=== PATIENT | female | born 1965 | race Caucasian/White ===

== ENCOUNTER 2017-08-05 21:00 | Emergency (ER) | payer OTHER ==
[2017-08-05 21:18] LABS: ADD MAN DIFF? NO
[2017-08-05 21:21] LABS: WHITE BLOOD COUNT 9.5 10^3/ul (4.8-10.8)
[2017-08-05 21:21] LABS: BASOPHILS % 0.3 % (0.0-2.0); EOSINOPHILS # 0.1 10^3/ul (0.0-0.5); EOSINOPHILS % 1.5 % (0.0-7.0); HEMATOCRIT 44.8 % (37.0-47.0); HEMOGLOBIN 13.5 g/dl (12.0-16.0); LYMPHOCYTES # 1.7 10^3/ul (0.8-2.9); LYMPHOCYTES % 17.9 % (15.0-51.0); MEAN CORPUSCULAR HEMOGLOBIN 27.3 pg (29.0-33.0); MEAN CORPUSCULAR HGB CONC 30.1 g/dl (32.0-37.0); MEAN CORPUSCULAR VOLUME 90.5 fl (82.0-101.0); MEAN PLATELET VOLUME 9.5 fl (7.4-10.4); MONOCYTE # 0.9 10^3/ul (0.3-0.9); MONOCYTES % 9.1 % (0.0-11.0); NEUTROPHIL # 6.8 10^3/ul (1.6-7.5); PLATELET COUNT 320 10^3/UL (140-415); RED BLOOD COUNT 4.95 10^6/ul (4.20-5.40); RED CELL DISTRIBUTION WIDTH 15.2 % (11.5-14.5)
[2017-08-05] MEDS: ONDANSETRON 4 MG INJ IV (21:31)
[2017-08-05] MEDS: DILTIAZEM 25 MG INJ IV (21:31)
[2017-08-05] MEDS: ASPIRIN 325 MG TAB PO (21:31)
[2017-08-05 21:50] LABS: ANION GAP 14 (8-16); BLOOD UREA NITROGEN 17 mg/dl (7-20); CALCIUM 9.7 mg/dl (8.4-10.2); CARBON DIOXIDE 28 mmol/L (21-31); CHLORIDE 104 mmol/L (97-110); CREATININE 0.82 mg/dl (0.44-1.00); GLUCOSE 120 mg/dl (70-220); POTASSIUM 4.4 mmol/L (3.5-5.1); SODIUM 142 mmol/L (135-144)
[2017-08-05 22:02] LABS: B-TYPE NATRIURETIC PEPTIDE 267 PG/ML (0-125)
[2017-08-05] MEDS: DILTIAZEM-D5W 125MG/125ML DRIP 125 ML IV (22:04)
[2017-08-06] MEDS ORDERED: NITROGLYCERIN (SL) 0.4 MG TAB (01:28)
[2017-08-06] MEDS: NITROGLYCERIN (SL) 0.4 MG TAB SL (01:30)
== END 2017-08-06 01:58 | disposition short-term general hospital (02) ==
LOC: E/R 08-06 01:58
DX: I48.91 Unspecified atrial fibrillation (principal); I10 Essential (primary) hypertension; E11.9 Type 2 diabetes mellitus without complications; E66.9 Obesity, unspecified; R06.02 Shortness of breath
CPT/HCPCS: 36415; 71045; 80048; 83880; 84484; 85025; 93005; 96374; 96375; 99291-25